=== PATIENT | female | born 1985 | race Caucasian/White ===

== ENCOUNTER 2016-04-28 16:41 | Emergency (ER) | payer OTHER ==
[~2016-04-28] VITALS: Ht 157.5 cm; Wt 133.8 kg
[2016-04-28] MEDS ORDERED: KEFLEX500 M1 PO (17:16)
[2016-04-28] MEDS ORDERED: BACTRIM DS TAB1 EACH PO (17:16)
--- NOTE | 2016-04-28 17:16 | ED SKIN/ALLERGY COMPLAINT ---
History of Present Illness General Chief Complaint: Skin Rash/ Abcess Stated Complaint: ?ABCESS Source: patient Exam Limitations: no limitations Vital Signs & Intake/Output Vital Signs & Intake/Output Vital Signs Date Time Temp Pulse Resp B/P Pulse O2 O2 Flow FiO2 Ox Delivery Rate 04/28 1645 98.1 110 18 132/91 96 Room Air Allergies Coded Allergies: amoxicillin (HIVES 04/28/16) Reconcile Medications Cephalexin (Keflex) 500 MG CAPSULE 1 CAP PO TID abscess/cellulitis Fluticasone/Salmeterol (Advair 250-50 Diskus) 250 MCG-50 MCG/DOSE BLST.W.DEV 1 PUF INH BID ASTHMA (Reported) Lorazepam (Ativan) 1 MG TABLET 1 TAB PO BID PRN ANXIETY (Reported) Sulfamethoxazole/Trimethoprim (Bactrim Ds Tablet) 800 MG-160 MG TABLET 1 TAB PO BID celulitis Triage Note: PT STATES THAT SHE WAS SEN T BY WALK IN DUE TO SHE HAD A SCRATCH ON HER ABD THAT IS NOW INFECTED Triage Nurses Notes Reviewed? yes Onset: Abrupt Duration: day(s):, constant Timing: recent history Severity: moderate, severe No Modifying Factors: none : No Patient currently breastfeeds: No HPI: 31-year-old female comes into emergency room with complaints of swelling and redness to her abdomen. Patient reports that she was scratching the area some days back and now it is red and swollen and painful. Patient went to urgent care center who sent her here to the hospital for further evaluation. Denies any fever or vomiting. Denies any other associated symptoms. (CARLOS GARCIA) Past History Travel History Traveled to [place] past 21 day No Medical History Any Pertinent Medical History? 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 No (CARLOS GARCIA) Review of Systems Review of Systems Constitutional: Reports: no symptoms. EENTM: Reports: no symptoms. Respiratory: Reports: no symptoms. Cardiovascular: Reports: no symptoms. GI: Reports: no symptoms. Genitourinary: Reports: no symptoms. Musculoskeletal: Reports: no symptoms. Skin: Reports: see HPI. Neurological/Psychological: Reports: no symptoms. Hematologic/Endocrine: Reports: no symptoms. Immunologic/Allergic: Reports: no symptoms. All Other Systems: Reviewed and Negative (CARLOS GARCIA) Physical Exam Physical Exam General Appearance: well developed/nourished, mild distress Head: atraumatic Eyes: Bilateral: normal appearance. Ears, Nose, Throat: normal ENT inspection, hearing grossly normal Neck: normal inspection Respiratory: no respiratory distress Gastrointestinal: soft, Large patchy red area, centralfluid collection, indurated, hot to touch, white yellow discharge from central nodule Back: normal inspection Extremities: normal inspection, normal range of motion, no edema Neurologic/Psych: awake, alert, oriented x 3, normal mood/affect Skin: intact Skin Problem Location: torso Skin Problem Character: abcess, drainage, erythema, patchy, swelling, tenderness , warm Lymphatic: no anterior cervical kenney (CARLOS GARCIA) Progress Differential Diagnosis: abscess/cellulitis, allergic reaction, contact dermatitis, drug reaction, urticaria Plan of Care: Orders Procedure Date/time Status TRUNK AREA CULTURE 04/28 1720 Active Current Medications Sig/Bartolo Start time Last Medication Dose Stop Time Status Admin Ondansetron HCl 4 MG ONCE ONE 04/28 1800 CAN (Zofran) 04/28 1801 Microbiology 04/28 172 TRUNK: Culture & Sensitivity - RECD 04/28 1727 TRUNK: Gram Stain - RECD Comments: 04/28/2016 6:28:36 PM Patient given dose of IV antibiotics. Patient will return in 2 days for packing removal. Patient started on Keflex and Bactrim. Nontoxic-appearing. Clinically looks well. (CARLOS GARCIA) Departure Departure Disposition: HOME OR SELF CARE Condition: Stable Clinical Impression Primary Impression: Abscess of skin of abdomen Referrals: ANÍ[facility] HAMILTON Additional Instructions: Take Keflex and Bactrim as prescribed. Return sooner if any spreading of redness, fever, or any other concerns worsening symptoms. Please go over all results of today's visit with your primary care doctor. Contact your primary care doctor to let them know you were here in the emergency room. There may be nonspecific findings which may not be related to your visit today here in the emergency room but may require further evaluation and chronic monitoring by your primary care doctor. If you had a laceration today the chance of foreign body always remains. You should follow-up with your primary care doctor for recheck in 3-5 days for a wound check. If you had an x-ray done there is a chance that a fracture could have been missed on initial read and you should follow-up with your primary care doctor for repeat x-rays if symptoms persist. If your blood pressure was elevated here in the emergency room please have rechecked by her primary care doctor within the next 48 hours by your primary care doctor. If you were prescribed a narcotic here in the emergency room or any type of controlled substances you're not allowed to drive while taking this medication or operate any type of heavy machinery. Narcotics can make you feel lightheaded dizziness nausea and can cause constipation. You may need to picking belt operator a stool softener. Thank you for choosing [facility] emergency room. Please return to the emergency room immediately if you have any other concerns worsening of symptoms. Departure Forms: Customer Survey General Discharge Information Prescriptions: Current Visit Scripts Cephalexin (Keflex) 1 CAP PO TID #30 CAP Sulfamethoxazole/Trimethoprim (Bactrim Ds Tablet) 1 TAB PO BID #20 TAB (CARLOS GARCIA) PA/DOG HANDLER OR TRAINER Co-Sign Statement Statement: ED Attending supervision documentation- [] I saw and evaluated the patient. I have also reviewed all the pertinent lab results and diagnostic results. I agree with the findings and the plan of care as documented in the PA's/DOG HANDLER OR TRAINER's documentation. [X] I have reviewed the ED Record and agree with the PA's/DOG HANDLER OR TRAINER's documentation. [] Additions or exceptions (if any) to the PAs/DOG HANDLER OR TRAINER's note and plan are summarized below: [] (AKHIL TRAN,HARRY Grajeda) Procedures Incision and Drainage Site: abdomen Blade Size: 11 I & D Procedure: Yes: betadine prep, sterile drapes applied, sterile dressing applied, wick placed. Progress: 2% lidocaine, 6 mL injected, Jazmín clamp used to break up adhesions, patient tolerated procedure well, (CARLOS GARCIA)
[2016-04-28] MEDS ORDERED: ADVAIR 250-501 EACH INH (17:34)
[2016-04-28] MEDS ORDERED: ATIVAN1 M1 PO (17:35)
[2016-04-28 19:12] VITALS: BP 125/88
[2016-05-01] MEDS ORDERED: CEPHALEXIN500 M3 PO (07:45)
[2016-05-01] MEDS ORDERED: BACTRIM DS TAB1 EACH PO (07:45)
== END 2016-04-28 19:20 ==
LOC: ERH 16:41
DX: L02.211 Cutaneous abscess of abdominal wall (principal)
CPT/HCPCS: 87184; 87070; 87147; 96365; J2001; J3101; J3370; J7060